=== PATIENT | male | born 1960 | race African-American/Black ===

== ENCOUNTER 2024-10-10 14:23 | Outpatient (CLI) | payer MEDICARE, OTHER | END 2024-10-10 14:24 | disposition home or self-care (01) | LOC: NAV RAD 14:23 | PROVIDERS: ATTEND Family Medicine | DX: M25.512 Pain in left shoulder (principal); M50.30 Other cervical disc degeneration, unspecified cervical region; M19.012 Primary osteoarthritis, left shoulder | CPT/HCPCS: 72040 ==